=== PATIENT | male | born 1995 | race African-American/Black ===

== ENCOUNTER 2017-03-16 02:55 | Emergency (ER) | payer OTHER ==
[~2017-03-16] VITALS: Ht 180.3 cm; Wt 85.5 kg
[2017-03-16 05:03] LABS: BASO % 0.6 % (0.0-1.0); EOS # 0.1 K/mm3 (0.0-0.50); EOS % 3.5 % (0.0-3.0); LARGE UNSTAINED CELL # 0.1 K/mm3 (0.0-0.4); LYMPH # 1.6 K/mm3 (1.5-6.5); LYMPH % 37.8 % (24.0-44.0); MEAN CORPUSCULAR HEMOGLOBIN 25.8 pg (27.0-33.0); MEAN CORPUSCULAR VOLUME 80.7 fl (80.0-96.0); MONO # 0.3 K/mm3 (0.0-0.8); MONO % 6.9 % (0.0-5.0); NEUTROPHILS % 49.2 % (36.0-66.0); PLATELET COUNT, AUTOMATED 184 k/mm3 (150-450); RED CELL DISTRIBUTION WIDTH 13.7 % (11.5-14.5)
[2017-03-16 05:34] LABS: ANION GAP 7 MEQ/L (8-16); BLOOD UREA NITROGEN 18 MG/DL (7-18); CALCIUM LEVEL 8.7 MG/DL (8.5-10.1); CARBON DIOXIDE LEVEL 30 MEQ/L (21-32); CHLORIDE LEVEL 104 MEQ/L (98-107); CREATININE FOR GFR 1.27 MG/DL (0.70-1.30); GLUCOSE, FASTING 81 MG/DL (70-105); MAGNESIUM LEVEL 2.3 MG/DL (1.4-2.0); SODIUM LEVEL 141 MEQ/L (136-145)
[2017-03-16 06:50] VITALS: BP 121/75
== END 2017-03-16 07:07 | disposition home or self-care (01) ==
LOC: M ED 02:55
DX: R25.2 Cramp and spasm (principal)

== ENCOUNTER 2017-07-22 00:19 | Emergency (ER) | payer OTHER ==
[2017-07-22 01:03] LABS: HEMATOCRIT 40.4 % (42.0-52.0); MEAN CORPUSCULAR HEMOGLOBIN 25.4 pg (27.0-33.0); MEAN CORPUSCULAR HGB CONC 32.2 g/dl (32.0-36.5); MEAN CORPUSCULAR VOLUME 79.1 fl (80.0-96.0); PLATELET COUNT, AUTOMATED 194 10^3/uL (150-450); RED BLOOD COUNT 5.11 10^6/uL (4.30-6.10); RED CELL DISTRIBUTION WIDTH 13.8 % (11.5-14.5); WHITE BLOOD COUNT 3.8 10^3/uL (4.0-10.0)
[2017-07-22 01:40] LABS: ACETAMINOPHEN LEVEL < 2.0 UG/ML (10.0-30.0); ALBUMIN 3.6 GM/DL (3.2-5.2); ALBUMIN/GLOBULIN RATIO 1.29 (1.00-1.93); ALKALINE PHOSPHATASE 89 U/L (45-117); ALT/SGPT 26 U/L (12-78); ANION GAP 6 MEQ/L (8-16); AST/SGOT 32 U/L (7-37); BILIRUBIN,DIRECT 0.1 MG/DL (0.0-0.2); BILIRUBIN,TOTAL 0.4 MG/DL (0.2-1.0); BLOOD UREA NITROGEN 14 MG/DL (7-18); CALCIUM LEVEL 8.2 MG/DL (8.5-10.1); CARBON DIOXIDE LEVEL 29 MEQ/L (21-32); CHLORIDE LEVEL 109 MEQ/L (98-107); CREATININE FOR GFR 1.45 MG/DL (0.70-1.30); ETHYL ALCOHOL (ETHANOL) < 0.003 % (0.000-0.010); GLUCOSE, FASTING 114 MG/DL (70-100); SALICYLATE LEVEL < 1.7 MG/DL (5.0-30.0); SODIUM LEVEL 144 MEQ/L (136-145); TOTAL PROTEIN 6.4 GM/DL (6.4-8.2)
[2017-07-22 02:07] LABS: AMPHETAMINES LEVEL URINE NEGATIVE (NEGATIVE); BARBITURATES URINE NEGATIVE (NEGATIVE); BENZODIAZEPINES URINE NEGATIVE (NEGATIVE); CANNABINOIDS URINE NEGATIVE (NEGATIVE); COCAINE METABOLITE URINE NEGATIVE (NEGATIVE); METHADONE URINE NEGATIVE (NEGATIVE); OPIATES URINE NEGATIVE (NEGATIVE); PHENCYCLIDINE URINE NEGATIVE (NEGATIVE)
[2017-07-22 02:16] LABS: CPK CREATINE PHOSPHOKINASE 531 U/L (39-308)
== END 2017-07-22 02:37 | disposition home or self-care (01) ==
LOC: M ED 00:19
DX: R74.8 Abnormal levels of other serum enzymes (principal); F99 Mental disorder, not otherwise specified
CPT/HCPCS: G0480

== ENCOUNTER 2017-07-23 12:19 | Inpatient (IN) | payer OTHER ==
[2017-07-23 13:28] LABS: HEMATOCRIT 43.4 % (42.0-52.0); HEMOGLOBIN 14.1 g/dl (14.0-18.0); MEAN CORPUSCULAR HEMOGLOBIN 25.6 pg (27.0-33.0); MEAN CORPUSCULAR HGB CONC 32.5 g/dl (32.0-36.5); MEAN CORPUSCULAR VOLUME 78.8 fl (80.0-96.0); PLATELET COUNT, AUTOMATED 217 10^3/uL (150-450); RED BLOOD COUNT 5.51 10^6/uL (4.30-6.10); RED CELL DISTRIBUTION WIDTH 13.6 % (11.5-14.5)
[2017-07-23 13:52] LABS: AMPHETAMINES LEVEL URINE NEGATIVE (NEGATIVE); BARBITURATES URINE NEGATIVE (NEGATIVE); BENZODIAZEPINES URINE NEGATIVE (NEGATIVE); CANNABINOIDS URINE NEGATIVE (NEGATIVE); COCAINE METABOLITE URINE NEGATIVE (NEGATIVE); METHADONE URINE NEGATIVE (NEGATIVE); OPIATES URINE NEGATIVE (NEGATIVE); PHENCYCLIDINE URINE NEGATIVE (NEGATIVE)
[2017-07-23 14:03] LABS: ALBUMIN/GLOBULIN RATIO 1.38 (1.00-1.93); ALKALINE PHOSPHATASE 81 U/L (45-117); ALT/SGPT 24 U/L (12-78); ANION GAP 7 MEQ/L (8-16); AST/SGOT 25 U/L (7-37); BILIRUBIN,DIRECT 0.3 MG/DL (0.0-0.2); BILIRUBIN,TOTAL 1.3 MG/DL (0.2-1.0); BLOOD UREA NITROGEN 14 MG/DL (7-18); CALCIUM LEVEL 8.8 MG/DL (8.5-10.1); CARBON DIOXIDE LEVEL 29 MEQ/L (21-32); CHLORIDE LEVEL 105 MEQ/L (98-107); CREATININE FOR GFR 1.44 MG/DL (0.70-1.30); ETHYL ALCOHOL (ETHANOL) < 0.003 % (0.000-0.010); GLUCOSE, FASTING 97 MG/DL (70-100); POTASSIUM SERUM 3.8 MEQ/L (3.5-5.1); SALICYLATE LEVEL < 1.7 MG/DL (5.0-30.0); SODIUM LEVEL 141 MEQ/L (136-145); TOTAL PROTEIN 6.9 GM/DL (6.4-8.2)
[2017-07-23 14:07] LABS: ACETAMINOPHEN LEVEL < 2.0 UG/ML (10.0-30.0)
[2017-07-23] MEDS ORDERED: ACETAMINOPHEN TAB 650MG DOSE (2X325MG) PO (16:00)
[2017-07-23] MEDS ORDERED: MAALOX 30 ML SUSP *UDC PO (16:00)
[2017-07-24] MEDS ORDERED: HALOPERIDOL 5 MG TAB PO (12:00)
[2017-07-24] MEDS: traZODone 50 MG TAB PO (23:01)
[2017-07-25 07:18] LABS: ANION GAP 5 MEQ/L (8-16); BLOOD UREA NITROGEN 14 MG/DL (7-18); CALCIUM LEVEL 9.3 MG/DL (8.5-10.1); CARBON DIOXIDE LEVEL 31 MEQ/L (21-32); CHLORIDE LEVEL 104 MEQ/L (98-107); CREATININE FOR GFR 1.46 MG/DL (0.70-1.30); GLUCOSE, FASTING 91 MG/DL (70-100); POTASSIUM SERUM 4.1 MEQ/L (3.5-5.1); SODIUM LEVEL 140 MEQ/L (136-145)
[2017-07-25] MEDS: traZODone 50 MG TAB PO (20:01)
[2017-07-26] MEDS: HALOPERIDOL 10 MG TAB PO (21:11)
[2017-07-26] MEDS: QUEtiapine FUMARATE 200 MG TAB PO (21:11)
[2017-07-27] MEDS: HALOPERIDOL 10 MG TAB PO ×2 (08:57→20:06)
[2017-07-27] MEDS: OLANZapine ORAL DISINTEGRATING TAB 5MG PO (18:46)
[2017-07-27] MEDS: QUEtiapine FUMARATE 200 MG TAB PO (20:06)
[2017-07-28] MEDS: HALOPERIDOL 10 MG TAB PO ×2 (10:38→20:27)
[2017-07-28] MEDS: OLANZapine ORAL DISINTEGRATING TAB 5MG PO (14:22)
[2017-07-28] MEDS: QUEtiapine FUMARATE 200 MG TAB PO (20:27)
[2017-07-29] MEDS: OLANZapine ORAL DISINTEGRATING TAB 5MG PO (12:11)
[2017-07-29] MEDS: MOM 30ML SUSPENSION UDC PO (19:44)
[2017-07-29] MEDS: HALOPERIDOL 10 MG TAB PO (20:04)
[2017-07-29] MEDS: QUEtiapine FUMARATE 200 MG TAB PO (20:04)
[2017-07-30] MEDS: CitaloPRAM (CeleXA) 20 MG TAB PO (16:46)
[2017-07-30] MEDS: HALOPERIDOL 10 MG TAB PO (21:00)
[2017-07-30] MEDS: QUEtiapine FUMARATE 200 MG TAB PO (21:00)
[2017-07-31] MEDS: diphenhydrAMINE 50 MG CAP PO (01:43)
[2017-07-31] MEDS: CitaloPRAM (CeleXA) 20 MG TAB PO (08:11)
[2017-07-31] MEDS: MOM 30ML SUSPENSION UDC PO (08:11)
[2017-07-31] MEDS: QUEtiapine FUMARATE 200 MG TAB PO (20:05)
[2017-07-31] MEDS: HALOPERIDOL 10 MG TAB PO (20:05)
[2017-08-01] MEDS: CitaloPRAM (CeleXA) 20 MG TAB PO (08:48)
[2017-08-01] MEDS: HALOPERIDOL 10 MG TAB PO (20:59)
[2017-08-01] MEDS: QUEtiapine FUMARATE 200 MG TAB PO (20:59)
[2017-08-02] MEDS: CitaloPRAM (CeleXA) 20 MG TAB PO (09:02)
[2017-08-02] MEDS: QUEtiapine FUMARATE 200 MG TAB PO (23:50)
[2017-08-02] MEDS: HALOPERIDOL 10 MG TAB PO (23:50)
[2017-08-03] MEDS: CitaloPRAM (CeleXA) 20 MG TAB PO (09:01)
[2017-08-03] MEDS: DIVALPROEX 250MG *ER* TAB PO ×2 (16:00→21:05)
[2017-08-03] MEDS: BENZTROPINE MESYLATE 2MG/2ML VIAL IM ×2 (16:31→17:30)
[2017-08-03] MEDS: BENZTROPINE 1 MG TAB PO ×2 (17:31→21:05)
[2017-08-03] MEDS: diphenhydrAMINE 50 MG CAP PO (18:25)
[2017-08-03] MEDS: LORazepam 2 MG TAB PO (18:36)
[2017-08-03] MEDS: HALOPERIDOL 10 MG TAB PO (21:04)
[2017-08-03] MEDS: QUEtiapine FUMARATE 200 MG TAB PO (21:04)
[2017-08-03] MEDS: MOM 30ML SUSPENSION UDC PO (21:10)
[2017-08-04] MEDS: BENZTROPINE 1 MG TAB PO ×2 (09:35→21:36)
[2017-08-04] MEDS: DIVALPROEX 250MG *ER* TAB PO ×3 (09:36→21:36)
[2017-08-04] MEDS: CitaloPRAM (CeleXA) 20 MG TAB PO (09:36)
[2017-08-04] MEDS: QUEtiapine FUMARATE 200 MG TAB PO (21:36)
[2017-08-04] MEDS: HALOPERIDOL 10 MG TAB PO (21:36)
[2017-08-05] MEDS: BENZTROPINE 1 MG TAB PO ×3 (08:21→21:25)
[2017-08-05] MEDS: DIVALPROEX 250MG *ER* TAB PO ×3 (08:21→21:25)
[2017-08-05] MEDS: CitaloPRAM (CeleXA) 20 MG TAB PO (08:21)
[2017-08-05] MEDS: QUEtiapine FUMARATE 200 MG TAB PO (21:25)
[2017-08-05] MEDS: HALOPERIDOL 10 MG TAB PO (21:26)
[2017-08-06] MEDS: DIVALPROEX 250MG *ER* TAB PO (07:25)
[2017-08-06] MEDS: CitaloPRAM (CeleXA) 20 MG TAB PO (07:26)
[2017-08-06] MEDS: BENZTROPINE 1 MG TAB PO (07:26)
== END 2017-08-06 08:00 | disposition home or self-care (01) | DRG 885 ==
LOC: M ED 12:19 → M ED INP 15:56 → M PSY 17:22
DX: F29 Unspecified psychosis not due to a substance or known physiological condition (principal); F32.3 Major depressive disorder, single episode, severe with psychotic features; Z79.899 Other long term (current) drug therapy; F17.210 Nicotine dependence, cigarettes, uncomplicated

== ENCOUNTER 2018-01-27 04:40 | Inpatient (IN) | payer OTHER ==
[2018-01-27 05:44] LABS: HEMOGLOBIN 13.5 g/dl (13.5-17.5); MEAN CORPUSCULAR HEMOGLOBIN 24.5 pg (27.0-33.0); MEAN CORPUSCULAR HGB CONC 32.1 g/dl (32.0-36.5); MEAN CORPUSCULAR VOLUME 76.4 fl (80.0-96.0); PLATELET COUNT, AUTOMATED 220 10^3/uL (150-450); RED CELL DISTRIBUTION WIDTH 14.5 % (11.5-14.5); WHITE BLOOD COUNT 3.5 10^3/uL (4.0-10.0)
[2018-01-27 06:06] LABS: AMPHETAMINES LEVEL URINE NEGATIVE (NEGATIVE); BARBITURATES URINE NEGATIVE (NEGATIVE); BENZODIAZEPINES URINE NEGATIVE (NEGATIVE); CANNABINOIDS URINE POSITIVE (NEGATIVE); COCAINE METABOLITE URINE NEGATIVE (NEGATIVE); METHADONE URINE NEGATIVE (NEGATIVE); OPIATES URINE NEGATIVE (NEGATIVE); PHENCYCLIDINE URINE NEGATIVE (NEGATIVE)
[2018-01-27 06:16] LABS: ACETAMINOPHEN LEVEL < 2.0 UG/ML (10.0-30.0); ALBUMIN 3.6 GM/DL (3.2-5.2); ALBUMIN/GLOBULIN RATIO 1.09 (1.00-1.93); ALKALINE PHOSPHATASE 110 U/L (45-117); ALT/SGPT 26 U/L (12-78); ANION GAP 9 MEQ/L (8-16); AST/SGOT 24 U/L (7-37); BILIRUBIN,DIRECT 0.1 MG/DL (0.0-0.2); BILIRUBIN,TOTAL 0.6 MG/DL (0.2-1.0); BLOOD UREA NITROGEN 10 MG/DL (7-18); CALCIUM LEVEL 8.6 MG/DL (8.5-10.1); CARBON DIOXIDE LEVEL 28 MEQ/L (21-32); CHLORIDE LEVEL 106 MEQ/L (98-107); CREATININE FOR GFR 1.53 MG/DL (0.70-1.30); ETHYL ALCOHOL (ETHANOL) 0.005 % (0.000-0.010); GLUCOSE, FASTING 91 MG/DL (70-100); POTASSIUM SERUM 3.9 MEQ/L (3.5-5.1); SALICYLATE LEVEL < 1.7 MG/DL (5.0-30.0); SODIUM LEVEL 143 MEQ/L (136-145); TOTAL PROTEIN 6.9 GM/DL (6.4-8.2)
[2018-01-27] MEDS ORDERED: MOM 30ML SUSPENSION UDC PO (12:15)
[2018-01-27] MEDS ORDERED: MAALOX 30 ML SUSP *UDC PO (12:15)
[2018-01-27] MEDS: PALIPERIDONE 6 MG ER TAB (INVEGA) PO (17:10)
[2018-01-28] MEDS: ACETAMINOPHEN TAB 650MG DOSE (2X325MG) PO ×2 (06:24→16:22)
[2018-01-28 07:21] LABS: ALBUMIN 3.7 GM/DL (3.2-5.2); ALBUMIN/GLOBULIN RATIO 0.97 (1.00-1.93); ALKALINE PHOSPHATASE 110 U/L (45-117); ALT/SGPT 27 U/L (12-78); ANION GAP 8 MEQ/L (8-16); AST/SGOT 22 U/L (7-37); BILIRUBIN,TOTAL 0.7 MG/DL (0.2-1.0); BLOOD UREA NITROGEN 9 MG/DL (7-18); CALCIUM LEVEL 8.8 MG/DL (8.5-10.1); CARBON DIOXIDE LEVEL 26 MEQ/L (21-32); CHLORIDE LEVEL 106 MEQ/L (98-107); CREATININE FOR GFR 1.54 MG/DL (0.70-1.30); FREE THYROXINE INDEX 4.3 % (1.4-3.8); GLUCOSE, FASTING 86 MG/DL (70-100); POTASSIUM SERUM 4.1 MEQ/L (3.5-5.1); SODIUM LEVEL 140 MEQ/L (136-145); T UPTAKE 36 % (33-40); THYROXINE (T4) 11.9 UG/DL (6.0-11.6); TOTAL PROTEIN 7.5 GM/DL (6.4-8.2)
[2018-01-28 09:22] LABS: KETONE, URINE AUTO RFX NEGATIVE (NEGATIVE); LEUKOCYTE ESTERASE UR AUTO RFX NEGATIVE (NEGATIVE); MUCUS, URINE RFX SMALL (NEGATIVE); NITRITE, URINE AUTO RFX NEGATIVE (NEGATIVE); RBC, URINE AUTO RFX 0 /HPF (0-3); SPECIFIC GRAVITY UR AUTO RFX 1.013 (1.002-1.035); SQUAM EPITHELIAL CELL UR AURFX 0 /HPF (0-6); WBC, URINE AUTO RFX 0 /HPF (0-3)
[2018-01-28] MEDS: risperiDONE 0.5 MG TAB PO ×4 (09:49→21:00)
[2018-01-28] MEDS: PALIPERIDONE 6 MG ER TAB (INVEGA) PO (18:07)
[2018-01-29 07:07] LABS: ANION GAP 10 MEQ/L (8-16); BLOOD UREA NITROGEN 12 MG/DL (7-18); CARBON DIOXIDE LEVEL 26 MEQ/L (21-32); CHLORIDE LEVEL 105 MEQ/L (98-107); CREATININE FOR GFR 1.63 MG/DL (0.70-1.30); GLUCOSE, FASTING 85 MG/DL (70-100); POTASSIUM SERUM 4.2 MEQ/L (3.5-5.1); SODIUM LEVEL 141 MEQ/L (136-145)
[2018-01-29] MEDS: risperiDONE 0.5 MG TAB PO ×2 (08:49→12:48)
[2018-01-29 12:45] LABS: CPK CREATINE PHOSPHOKINASE 220 U/L (39-308)
[2018-01-29] MEDS: PALIPERIDONE 6 MG ER TAB (INVEGA) PO (16:05)
[2018-01-29] MEDS: FLUTICASONE PROP 0.05% NASAL SPRAY 16 GM (FLONASE) NARES (21:09)
[2018-01-30 07:05] LABS: HEMATOCRIT 44.3 % (42.0-52.0); HEMOGLOBIN 14.6 g/dl (13.5-17.5); MEAN CORPUSCULAR HEMOGLOBIN 24.5 pg (27.0-33.0); MEAN CORPUSCULAR VOLUME 74.5 fl (80.0-96.0); PLATELET COUNT, AUTOMATED 249 10^3/uL (150-450); RED BLOOD COUNT 5.95 10^6/uL (4.30-6.10); RED CELL DISTRIBUTION WIDTH 14.3 % (11.5-14.5); WHITE BLOOD COUNT 3.9 10^3/uL (4.0-10.0)
[2018-01-30 07:31] LABS: ANION GAP 6 MEQ/L (8-16); BLOOD UREA NITROGEN 14 MG/DL (7-18); CALCIUM LEVEL 9.1 MG/DL (8.5-10.1); CARBON DIOXIDE LEVEL 29 MEQ/L (21-32); CHLORIDE LEVEL 105 MEQ/L (98-107); CREATININE FOR GFR 1.61 MG/DL (0.70-1.30); GLUCOSE, FASTING 84 MG/DL (70-100); POTASSIUM SERUM 4.4 MEQ/L (3.5-5.1); SODIUM LEVEL 140 MEQ/L (136-145)
[2018-01-30] MEDS: FLUTICASONE PROP 0.05% NASAL SPRAY 16 GM (FLONASE) NARES ×2 (08:25→20:08)
[2018-01-30] MEDS ORDERED: hydrOXYzine 10 MG TAB PO (16:15)
[2018-01-30] MEDS: PALIPERIDONE 6 MG ER TAB (INVEGA) PO (16:27)
[2018-01-30] MEDS: traZODone 50 MG TAB PO (20:08)
[2018-01-31 07:10] LABS: ANION GAP 8 MEQ/L (8-16); BLOOD UREA NITROGEN 15 MG/DL (7-18); CALCIUM LEVEL 8.6 MG/DL (8.5-10.1); CARBON DIOXIDE LEVEL 28 MEQ/L (21-32); CHLORIDE LEVEL 105 MEQ/L (98-107); CREATININE FOR GFR 1.65 MG/DL (0.70-1.30); GLUCOSE, FASTING 82 MG/DL (70-100); POTASSIUM SERUM 4.1 MEQ/L (3.5-5.1); SODIUM LEVEL 141 MEQ/L (136-145)
[2018-01-31] MEDS: FLUTICASONE PROP 0.05% NASAL SPRAY 16 GM (FLONASE) NARES ×2 (08:56→20:08)
[2018-01-31] MEDS: PALIPERIDONE 6 MG ER TAB (INVEGA) PO (16:09)
[2018-01-31] MEDS: traZODone 50 MG TAB PO (20:08)
[2018-02-01 09:19] LABS: ANION GAP 9 MEQ/L (8-16); BLOOD UREA NITROGEN 12 MG/DL (7-18); CALCIUM LEVEL 8.8 MG/DL (8.5-10.1); CARBON DIOXIDE LEVEL 26 MEQ/L (21-32); CHLORIDE LEVEL 106 MEQ/L (98-107); CREATININE FOR GFR 1.63 MG/DL (0.70-1.30); GLUCOSE, FASTING 100 MG/DL (70-100); POTASSIUM SERUM 4.1 MEQ/L (3.5-5.1); SODIUM LEVEL 141 MEQ/L (136-145)
[2018-02-01] MEDS: FLUTICASONE PROP 0.05% NASAL SPRAY 16 GM (FLONASE) NARES ×2 (09:32→20:00)
[2018-02-01] MEDS: PALIPERIDONE 6 MG ER TAB (INVEGA) PO (17:16)
[2018-02-01] MEDS: traZODone 50 MG TAB PO (20:00)
[2018-02-02] MEDS: FLUTICASONE PROP 0.05% NASAL SPRAY 16 GM (FLONASE) NARES (09:00)
== END 2018-02-02 11:40 | disposition home or self-care (01) | DRG 885 ==
LOC: M ED 04:40 → M ED INP 08:29 → M PSY 09:10
DX: F25.9 Schizoaffective disorder, unspecified (principal); F41.0 Panic disorder [episodic paroxysmal anxiety]; R94.6 Abnormal results of thyroid function studies; R79.89 Other specified abnormal findings of blood chemistry; Z79.899 Other long term (current) drug therapy

== ENCOUNTER 2018-03-31 13:15 | Inpatient (IN) | payer OTHER ==
[2018-03-31 14:43] LABS: HEMATOCRIT 43.4 % (42.0-52.0); HEMOGLOBIN 13.6 g/dl (13.5-17.5); MEAN CORPUSCULAR HEMOGLOBIN 24.5 pg (27.0-33.0); MEAN CORPUSCULAR HGB CONC 31.3 g/dl (32.0-36.5); MEAN CORPUSCULAR VOLUME 78.1 fl (80.0-96.0); PLATELET COUNT, AUTOMATED 250 10^3/uL (150-450); RED BLOOD COUNT 5.56 10^6/uL (4.30-6.10); RED CELL DISTRIBUTION WIDTH 15.2 % (11.5-14.5); WHITE BLOOD COUNT 5.4 10^3/uL (4.0-10.0)
[2018-03-31 14:59] LABS: AMPHETAMINES LEVEL URINE NEGATIVE (NEGATIVE); BARBITURATES URINE NEGATIVE (NEGATIVE); BENZODIAZEPINES URINE NEGATIVE (NEGATIVE); CANNABINOIDS URINE NEGATIVE (NEGATIVE); COCAINE METABOLITE URINE NEGATIVE (NEGATIVE); METHADONE URINE NEGATIVE (NEGATIVE); OPIATES URINE NEGATIVE (NEGATIVE); PHENCYCLIDINE URINE NEGATIVE (NEGATIVE)
[2018-03-31 15:36] LABS: ACETAMINOPHEN LEVEL < 2.0 UG/ML (10.0-30.0); ALBUMIN 4.3 GM/DL (3.2-5.2); ALKALINE PHOSPHATASE 113 U/L (45-117); ALT/SGPT 28 U/L (12-78); ANION GAP 6 MEQ/L (8-16); AST/SGOT 22 U/L (7-37); BILIRUBIN,DIRECT 0.2 MG/DL (0.0-0.2); BILIRUBIN,TOTAL 0.6 MG/DL (0.2-1.0); BLOOD UREA NITROGEN 13 MG/DL (7-18); CALCIUM LEVEL 9.3 MG/DL (8.5-10.1); CARBON DIOXIDE LEVEL 29 MEQ/L (21-32); CHLORIDE LEVEL 106 MEQ/L (98-107); CREATININE FOR GFR 1.44 MG/DL (0.70-1.30); ETHYL ALCOHOL (ETHANOL) < 0.003 % (0.000-0.010); GLUCOSE, FASTING 77 MG/DL (70-100); POTASSIUM SERUM 4.3 MEQ/L (3.5-5.1); SALICYLATE LEVEL < 1.7 MG/DL (5.0-30.0); SODIUM LEVEL 141 MEQ/L (136-145); TOTAL PROTEIN 7.6 GM/DL (6.4-8.2)
[2018-03-31] MEDS ORDERED: MAALOX 30 ML SUSP *UDC PO (16:45)
[2018-03-31] MEDS ORDERED: MOM 30ML SUSPENSION UDC PO (16:45)
[2018-03-31] MEDS ORDERED: ACETAMINOPHEN TAB 650MG DOSE (2X325MG) PO (16:45)
[2018-04-01] MEDS: PALIPERIDONE 6 MG ER TAB (INVEGA) PO (09:00)
[2018-04-01] MEDS: traZODone 50 MG TAB PO (20:16)
[2018-04-02] MEDS: PALIPERIDONE 6 MG ER TAB (INVEGA) PO ×2 (09:00→17:01)
[2018-04-02] MEDS: SERTRALINE HCL 50 MG TAB PO (17:01)
[2018-04-02] MEDS: traZODone 50 MG TAB PO (22:16)
[2018-04-03] MEDS: SERTRALINE HCL 50 MG TAB PO (17:04)
[2018-04-03] MEDS: PALIPERIDONE 6 MG ER TAB (INVEGA) PO (17:04)
[2018-04-03] MEDS: traZODone 50 MG TAB PO (22:11)
[2018-04-04] MEDS ORDERED: hydrOXYzine 25 MG TAB PO (11:45)
[2018-04-04] MEDS: PALIPERIDONE 6 MG ER TAB (INVEGA) PO (16:27)
[2018-04-04] MEDS: SERTRALINE HCL 50 MG TAB PO (16:27)
[2018-04-04] MEDS: traZODone 50 MG TAB PO (21:08)
[2018-04-05] MEDS: SERTRALINE HCL 50 MG TAB PO (16:05)
[2018-04-05] MEDS: PALIPERIDONE 6 MG ER TAB (INVEGA) PO (16:05)
[2018-04-05] MEDS: MIRTAZAPINE 7.5MG PER 1/2 TABLET PO (20:21)
[2018-04-06] MEDS: SERTRALINE HCL 25 MG TABLET PO (16:29)
[2018-04-06] MEDS: PALIPERIDONE 6 MG ER TAB (INVEGA) PO (16:29)
[2018-04-06] MEDS: MIRTAZAPINE 7.5MG PER 1/2 TABLET PO (20:41)
[2018-04-07] MEDS: PALIPERIDONE 6 MG ER TAB (INVEGA) PO (17:53)
[2018-04-07] MEDS: SERTRALINE HCL 25 MG TABLET PO (17:54)
[2018-04-07] MEDS: MIRTAZAPINE 7.5MG PER 1/2 TABLET PO (21:15)
[2018-04-07] MEDS: PILL CRUSHER/CUTTER 1 EACH XX (21:16)
[2018-04-08] MEDS: PALIPERIDONE 6 MG ER TAB (INVEGA) PO (17:25)
[2018-04-08] MEDS: SERTRALINE HCL 25 MG TABLET PO (17:25)
[2018-04-08] MEDS: PILL CRUSHER/CUTTER 1 EACH XX (21:32)
[2018-04-08] MEDS: traZODone 50 MG TAB PO (21:32)
[2018-04-09] MEDS: PALIPERIDONE PALMITATE 234 MG/1.5 ML INJ (INVEGA SUSTENNA)(J2426) IM (12:51)
[2018-04-09] MEDS: SERTRALINE HCL 25 MG TABLET PO (16:03)
[2018-04-09] MEDS: traZODone 50 MG TAB PO (21:31)
[2018-04-09] MEDS: PILL CRUSHER/CUTTER 1 EACH XX (21:32)
[2018-04-10] MEDS: SERTRALINE HCL 25 MG TABLET PO (16:07)
[2018-04-10] MEDS: traZODone 50 MG TAB PO (21:47)
[2018-04-10] MEDS: PILL CRUSHER/CUTTER 1 EACH XX (21:48)
[2018-04-11] MEDS: SERTRALINE HCL 25 MG TABLET PO (17:47)
[2018-04-12] MEDS: PILL CRUSHER/CUTTER 1 EACH XX (08:43)
[2018-04-12] MEDS: PALIPERIDONE PALMITATE 156 MG/1ML INJ(INVEGA SUSTENNA)(J2426) IM (12:55)
[2018-04-12] MEDS: SERTRALINE HCL 25 MG TABLET PO (17:26)
[2018-04-13] MEDS: PILL CRUSHER/CUTTER 1 EACH XX (08:47)
== END 2018-04-13 11:00 | disposition home or self-care (01) | DRG 885 ==
LOC: M ED 13:15 → M ED INP 16:34 → M PSY 21:24
DX: F25.1 Schizoaffective disorder, depressive type (principal); R45.851 Suicidal ideations; F41.0 Panic disorder [episodic paroxysmal anxiety]